=== PATIENT | female | born 1990 | race Hispanic/Latino ===

== ENCOUNTER 2018-08-15 20:38 | Emergency (ER) | payer MEDICAID ==
[2018-08-15] MEDS ORDERED: IBUPROFEN 600 MG TABLET ONE (22:24)
[2018-08-15] MEDS ORDERED: CLINDAMYCIN HCL 150 MG CAP ONE (22:24)
== END 2018-08-15 22:41 | disposition home or self-care (01) ==
LOC: EDH 20:38
DX: L02.31 Cutaneous abscess of buttock (principal); Z72.0 Tobacco use
CPT/HCPCS: 81025

== ENCOUNTER 2022-07-19 19:48 | Emergency (ER) | payer MEDICARE ==
[~2022-07-19] VITALS: Ht 154.9 cm; Wt 119.7 kg
[2022-07-19 20:44] LABS: BASOPHILS % (AUTO) 0.4 % (0.0-5.0); EOSINOPHILS % (AUTO) 1.6 % (0.0-8.0); HEMATOCRIT 39.8 % (36-48); LYMPHOCYTES % (AUTO) 17.2 % (21.0-51.0); MEAN CORPUSCULAR HEMOGLOBIN 29.3 pg (27.0-33.0); MEAN CORPUSCULAR HGB CONC 33.2 g/dL (32.0-36.0); MEAN CORPUSCULAR VOLUME 88.2 fL (79-99); MONOCYTES % (AUTO) 4.6 % (3.0-13.0); PLATELET COUNT (AUTO) 291 K/uL (130-400); RED BLOOD CELL COUNT(AUTO) 4.51 MIL/uL (4.00-5.50); RED CELL DISTRIBUTION WIDTH 12.6 % (11.0-15.5); WHITE BLOOD COUNT (AUTO) 8.6 K/uL (4.8-10.8)
[2022-07-19 20:52] LABS: CREATININE 0.7 mg/dL (0.5-1.5); POTASSIUM 3.4 mmol/L (3.5-5.1)
[2022-07-19 20:57] LABS: ALBUMIN 3.2 g/dL (3.5-5.0)
[2022-07-19] MEDS ORDERED: DOXY100C5 PO (21:37)
[2022-07-19 21:42] VITALS: BP 127/74
[2022-07-19] MEDS ORDERED: DEXAMETHASONE SOD PHOSPHATE 4 MG/ML 1ML VIAL IM ONE (22:00)
== END 2022-07-19 21:49 | disposition home or self-care (01) ==
LOC: EDH 19:48
DX: J02.0 Streptococcal pharyngitis (principal); K13.70 Unspecified lesions of oral mucosa; Z79.52 Long term (current) use of systemic steroids; Z86.73 Personal history of transient ischemic attack (TIA), and cerebral infarction without residual deficits
CPT/HCPCS: 99283; 80053; 85025; 86308; 36415; 96372; J1100